=== PATIENT | male | born 1980 | race Two or more races ===

== ENCOUNTER 2019-04-22 19:47 | Emergency (ER) | payer SELFPAY ==
[2019-04-22 19:56] VITALS: BMI 32.3
--- NOTE | 2019-04-22 21:26 | PDOC ---
History of Present Illness - General Chief Complaint: Cold Symptoms Stated Complaint: SORE THROAT/COUGH Time Seen by Provider: 04/22/19 21:04 History Source: Patient - History of Present Illness Initial Comments: 04/22/19 21:31 Chief complaint: throat swelling Patient 39-year-old male with no significant medical history who states 2 weeks ago he was diagnosed with strep, took Zithromax, got better, fever went away. Patient now has worsening sore throat, difficulty swallowing his own saliva, and also has a cough, worse when he sleeping or lying GENERAL/CONSTITUTIONAL: No fever, weakness. dizziness HEAD, EYES, EARS, NOSE AND THROAT: No change in vision. No ear pain or discharge. + sore throat. CARDIOVASCULAR: No chest pain RESPIRATORY: No shortness of breath or cough GASTROINTESTINAL: No pain, nausea, vomiting, diarrhea or constipation GENITOURINARY: No dysuria MUSCULOSKELETAL: No neck or back pain SKIN: No rash NEUROLOGIC: No headache, vertigo, loss of consciousness, or loss of sensation. GENERAL: The patient is awake, alert, and fully oriented, in no acute distress. HEAD: Normal with no signs of trauma. EYES: Pupils equal, round and reactive to light, sclera anicteric, conjunctiva clear. ENT: pharynx: +erythema, swelling, no obvious exudate, uvula midline, no obvious peritonsillar abscess NECK: supple CHEST: clear, nontender, rr ABD: soft, nontender BACK: no tenderness or signs of injury EXTREMITIES: Normal range of motion, no edema. NEUROLOGICAL: Normal speech, normal gait. SKIN: Warm, Dry Past History - Past Medical History Allergies/Adverse Reactions: Allergies Allergy/AdvReac Type Severity Reaction Status Date / Time No Known Allergies Allergy Verified 04/22/19 19:53 COPD: No - Immunization History Immunization Up to Date: No - Psycho Social/Smoking Cessation Hx Smoking History: Never smoked Have you smoked in the past 12 months: No Hx Alcohol Use: No Drug/Substance Use Hx: No Substance Use Type: None *Physical Exam - Vital Signs Last Vital Signs Temp Pulse Resp BP Pulse Ox 98.2 F 95 H 20 142/96 100 04/22/19 19:54 04/22/19 19:54 04/22/19 19:54 04/22/19 19:54 04/22/19 19:54 ED Treatment Course - LABORATORY CBC & Chemistry Diagram: 04/22/19 21:45 04/22/19 21:45 Medical Decision Making - Medical Decision Making 04/22/19 21:34 Patient who was diagnosed with strep, did have a strep test, 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 Patient had been on Zithromax. Got better, now is worse. Also has a cough. Patient does not have fever. Patient is having difficulty swallowing his own saliva. Will do labs, give Decadron 10 mg, Toradol, liter of fluid as he is having difficulty drinking and likely dehydrated. Patient will need CT scan to evaluate further. There were no signs of sub-lingular swelling, neck swelling or signs of deep space abscess. Labs and meds ordered, as above, signed out to MARISOL Lopez for further evaluation 04/22/19 21:38 Discharge - Discharge Information Problems reviewed: Yes Clinical Impression/Diagnosis: Throat swelling - Follow up/Referral Referrals: ON STAFF,NOT [Primary Care Provider] - - Patient Discharge Instructions - Post Discharge Activity
[2019-04-22] MEDS ORDERED: DEXAMETHASONE SOD PHOSPHATE 10 MG/1 ML VIAL IVPUSH ONE (21:27)
[2019-04-22] MEDS ORDERED: SODIUM CHLORIDE 1,000 ML IV STA (21:27)
[2019-04-22] MEDS ORDERED: KETOROLAC TROMETHAMINE 30 MG/1 ML VIAL IVPUSH ONE (21:27)
[2019-04-22] MEDS ORDERED: DEXAMETHASONE SOD PHOSPHATE 10 MG/1 ML VIAL ONE (21:42)
[2019-04-22] MEDS ORDERED: KETOROLAC TROMETHAMINE 30 MG/1 ML VIAL ONE (21:42)
[2019-04-22 22:02] LABS: BASO % 0.3 % (0-2.0); EOS % 0.6 % (0-4.5); HEMATOCRIT 48.8 % (35.4-49); HEMOGLOBIN 16.3 GM/dL (11.7-16.9); LYMPH % 17.8 % (8-40); MCH 28.2 pg (25.7-33.7); MCHC 33.4 g/dl (32.0-35.9); MEAN CELL VOLUME 84.5 fl (80-96); MEAN PLT VOLUME 8.1 fl (7.5-11.1); MONO % 6.7 % (3.8-10.2); NEUT % 74.6 % (42.8-82.8); PLATELET COUNT 276 K/MM3 (134-434); RBC 5.77 M/mm3 (4.00-5.60); RDW 13.3 % (11.9-15.9); WHITE BLOOD COUNT 11.8 K/mm3 (4.0-10.0)
[2019-04-22 22:27] LABS: BLOOD UREA NITROGEN 18.9 mg/dL (7-18); CALCIUM 9.1 mg/dL (8.5-10.1); CREATININE 1.2 mg/dL (0.55-1.3); POTASSIUM 4.1 mmol/L (3.5-5.1)
[2019-04-23] MEDS ORDERED: CLINDAMYCIN 600MG PREMIX IVPB 600 MG/50 ML BAG IVPB ONE ×2 (01:36→02:01)
--- NOTE | 2019-04-23 01:37 | PDOC ---
*Physical Exam - Vital Signs Last Vital Signs Temp Pulse Resp BP Pulse Ox 98.2 F 95 H 20 142/96 100 04/22/19 19:54 04/22/19 19:54 04/22/19 19:54 04/22/19 19:54 04/22/19 19:54 ED Treatment Course - LABORATORY CBC & Chemistry Diagram: 04/22/19 21:45 04/22/19 21:45 - ADDITIONAL ORDERS Additional order review: Laboratory Results 04/22/19 21:45 Sodium 139 Potassium 4.1 Chloride 103 Carbon Dioxide 29 Anion Gap 7 L BUN 18.9 H Creatinine 1.2 Est GFR (CKD-EPI)AfAm 87.75 Est GFR (CKD-EPI)NonAf 75.72 Random Glucose 94 Calcium 9.1 04/22/19 21:45 RBC 5.77 H MCV 84.5 MCHC 33.4 RDW 13.3 MPV 8.1 Neutrophils % 74.6 Lymphocytes % 17.8 Monocytes % 6.7 Eosinophils % 0.6 Basophils % 0.3 - Medications Given in the ED: ED Medications Discontinued Medications Generic Name Dose Route Start Last Admin Trade Name Freq PRN Reason Stop Dose Admin Dexamethasone Sodium Phosphate 10 mg 04/22/19 21:27 04/22/19 21:30 Decadron Injection - IVPUSH 04/22/19 21:28 10 mg ONCE ONE Administration Sodium Chloride 1,000 mls @ 1,000 mls/hr 04/22/19 21:27 04/22/19 21:28 Normal Saline - IV 04/22/19 22:26 1,000 mls/hr ASDIR STA Administration Ketorolac Tromethamine 30 mg 04/22/19 21:27 04/22/19 21:28 Toradol Injection - IVPUSH 04/22/19 21:28 30 mg ONCE ONE Administration Medical Decision Making - Medical Decision Making 04/23/19 22:00 Case was endorsed to me follow labs and CT scan. Patient seen and evaluated, in no acute distress. Labs with no acute findings Strep test is negative. Patient is pending CT scan. 04/23/19 01:32 Patient Full Name: JUAN LIZAMA Patient Accession No: [id number] Patient : [id number] Reason for Exam: tonsillar swelling Referring Physician: MARQUISE CAGLE Patient Name: DL MARTINEZ THIS IS A PRELIMINARY REPORT FROM [facility] [employer] [employer] DATE OF SERVICE: 2019-04-22 23:30:04 IMAGES: [id number] EXAM: SOFT TISSUE NECK CT WITH CONTR HISTORY: Tonsillar swelling COMPARISON: None. FINDINGS: There is soft tissue asymmetry at the left base of the tongue with an ill- defined central low-attenuation area. Differential considerations include phlegmon/developing abscess or a mass. Recommend clinical correlation and follow-up Patent airway Small bilateral tonsillitis No peritonsillar or retropharyngeal abscess No retropharyngeal space edema or cervical lymphadenopathy Normal vascular enhancement Mild cervical spondylosis One or more of the following dose reduction techniques were used: automated exposure control, adjustment of the mA and/or kV according to patient size, use of iterative reconstructive technique. THIS DOCUMENT HAS BEEN ELECTRONICALLY SIGNED Juan Pablo Wild MD 04/23/2019 01:14 DARY Eric. Please call Imaging Business Computers Teacher [phone] ([phone]) with questions. INTERPRETING RADIOLOGIST: Juan Pablo Wild MD Electronically Signed: Apr 23, 2019 01:16AM EST Results discussed with the patient and . Copy given for ENT if they choose to follow outside of this institution. Since patient has been on Zithromax, assumption is that coverage is not effective. Will give a dose of clindamycin 600 mg IV and a prescription for the pharmacy. I discussed the physical exam findings, ancillary test results and final diagnoses with the patient. I answered all of the patient's questions. The patient was satisfied with the care received and felt comfortable with the dis charge plan and treatment plan. The Patient agrees to follow up with the primary care physician within 24-72 hours. Discharge - Discharge Information Problems reviewed: Yes Clinical Impression/Diagnosis: Throat swelling, Pharyngeal abscess Condition: Stable Disposition: HOME - Follow up/Referral Referrals: ON STAFF,NOT [Primary Care Provider] - Abel Hicks MD [Staff Physician] - - Patient Discharge Instructions Patient Printed Discharge Instructions: DI for Peritonsillar Abscess -- Adult Additional Instructions: Your Discharge Instructions: You must call primary care physician within 24 hours to arrange follow-up. Return to the Emergency Department with any new, persistent or worsening symptoms, for fever, chills, SOB, dizziness or any other concerning changes that may occur. Follow-up with ENT immediately. Take the antibiotics as prescribed. - Post Discharge Activity Work/Back to School Note: Back to Work
[2019-04-23 02:14] VITALS: BP 115/71; PULSE 96; TEMP 98
== END 2019-04-23 02:30 | disposition home or self-care (01) ==
LOC: JER 19:47 → JERFT 19:47 → JER 04-23 02:30
PROC: 3E03329 Introduction of Other Anti-infective into Peripheral Vein, Percutaneous Approach (ICD-10-PCS; principal; 2019-04-22)
PROC: 3E0333Z Introduction of Anti-inflammatory into Peripheral Vein, Percutaneous Approach (ICD-10-PCS; 2019-04-22)
PROC: 3E0333Z Introduction of Anti-inflammatory into Peripheral Vein, Percutaneous Approach (ICD-10-PCS; 2019-04-22)
DX: J39.1 Other abscess of pharynx (principal)
CPT/HCPCS: 36415; 70491-TC; 80048; 85025; 87070; 87880; 99285-25; J1100; J7030; Q9967